=== PATIENT | male | born 1950 | race Caucasian/White ===

== ENCOUNTER → 2017-07-10 | Outpatient (CLI) | payer OTHER | LOC: FIMAGING 09:34 | PROVIDERS: ATTEND Internal Medicine | DX: R91.8 Other nonspecific abnormal finding of lung field (principal) ==

== ENCOUNTER 2017-08-15 10:00 | Day surgery (SDC) | payer OTHER ==
[2017-08-15] MEDS ORDERED: PROTAMINE SULFATE 50 MG/5 ML VIAL IVP PRN (10:14)
[2017-08-15] MEDS ORDERED: MEPERIDINE 25 MG/ML SYR IVP PRN (10:14)
[2017-08-15] MEDS ORDERED: FLUMAZENIL 0.5 MG/5 ML MDV IVP PRN (10:14)
[2017-08-15] MEDS ORDERED: HEPARIN 10,000 UNIT/10 ML MDV (1,000 UNIT/ML) IVP PRN (10:14)
[2017-08-15] MEDS ORDERED: MIDAZOLAM 2 MG/2 ML VIAL IVP PRN (10:14)
[2017-08-15] MEDS ORDERED: fentaNYL 100 MCG/2 ML INJ IVP PRN (10:14)
[2017-08-15] MEDS ORDERED: ALTEPLASE 2 MG VIAL IVP PRN (10:14)
[2017-08-15] MEDS ORDERED: NALOXONE HCL 0.4 MG/ML INJ IVP PRN (10:14)
[2017-08-15] MEDS ORDERED: GLUCAGON HCL 1 MG VIAL IVP PRN (10:14)
[2017-08-15] MEDS ORDERED: NS 1,000 ML IV SCH (10:15)
[2017-08-15] MEDS ORDERED: NALOXONE HCL 0.4 MG/ML INJ ONE (10:18)
[2017-08-15] MEDS ORDERED: fentaNYL 100 MCG/2 ML INJ ONE (10:19)
[2017-08-15] MEDS ORDERED: MIDAZOLAM 2 MG/2 ML VIAL ONE (10:19)
[2017-08-15] MEDS ORDERED: FLUMAZENIL 0.5 MG/5 ML MDV IVP ONE (10:19)
[2017-08-15 11:08] LABS: INR 1.05 (0.83-1.16); PROTIME(PATIENT) 13.9 SEC (12.0-15.0)
[2017-08-15] MEDS ORDERED: LIDO/EPI 1% **Not for Epidural 20 ML MDV ONE (11:30)
[2017-08-15] MEDS ORDERED: LIDOCAINE 1% 300 MG/30 ML SDV ONE (11:31)
--- NOTE | 2017-08-15 11:41 | PDGENHP ---
History & Physical Chief Complaint: lung nodule History of Present Illness: tobacco history, new solid LLL nodule on CT Relevant Physical Exam: NAD, no wheezing Cardiorespiratory Assessment: rrr, nl wob
--- NOTE | 2017-08-15 11:42 | PDPROPOC ---
Sedation Plan of Care Sedation Plan of Care: vital signs stable, mental status noted, patient educated of risks, benefits, alternatives, patient can tolerate sedation ASA Classification: ASA 2 Planned drugs: fentanyl, midazolam Mallampati Score: Class 3 Mallampati Reference Image:
--- NOTE | 2017-08-15 12:41 | PDRADPN ---
Radiology Procedure Note Date of Procedure: 08/15/17 Radiologist: Judah Jeff Anesthesia: IV Sedation, Local (Specify) Pre-op Diagnosis: primary lung cancer Post-op Diagnosis: same Indication: 2.5cm solid LLL nodule Procedure: CT guided biopsy Finding(s): Four passes with 18G core biopsy devices from inferior edge of nodule submitted in formalin. Touch prep view by path MD, adequate and likely malignant by report. Inf/Abcess present in the surg proc area at time of surgery?: No EBL: Minimal Complications: none Specimen(s): Four 18G cores submitted in formalin
[2017-08-15] MEDS ORDERED: oxyCODONE IR 5 MG TAB PO PRN (13:06)
[2017-08-15 15:33] VITALS: BP 113/72
== END 2017-08-15 15:45 | disposition home or self-care (01) ==
LOC: FIMAGING 10:00
PROVIDERS: ATTEND Radiology Diagnostic Radiology
PROC: 0BBJ3ZX Excision of Left Lower Lung Lobe, Percutaneous Approach, Diagnostic (ICD-10-PCS; principal; 2017-08-15 12:54)
PROC: BB281ZZ Computerized Tomography (CT Scan) of Left Tracheobronchial Tree using Low Osmolar Contrast (ICD-10-PCS; principal; 2017-08-15 12:54)
DX: R91.1 Solitary pulmonary nodule (principal); Z87.891 Personal history of nicotine dependence
CPT/HCPCS: J2250; J2310; J3010

== ENCOUNTER → 2017-09-04 | Outpatient (CLI) | payer OTHER ==
[~2017-09-04] MED LIST: GADOBUTROL 10 ML VIAL IVP ONE
== END ==
LOC: FIMAGING 13:38
PROVIDERS: ATTEND Internal Medicine Hematology & Oncology
DX: C34.32 Malignant neoplasm of lower lobe, left bronchus or lung (principal); R90.82 White matter disease, unspecified
CPT/HCPCS: A9585

== ENCOUNTER 2017-09-12 10:45 | Inpatient (IN) | payer OTHER ==
[2017-09-12] MEDS ORDERED: ONDANSETRON 4 MG/2 ML VIAL IVP ONE (11:11)
[2017-09-12] MEDS ORDERED: ceFAZolin 2 GM/DEXTROSE 100 ML IV ONE (11:11)
[2017-09-12] MEDS ORDERED: DEXAMETHASONE 4 MG/ML VIAL IVP ONE (11:11)
--- NOTE | 2017-09-12 11:11 | PDANEPAE ---
ANE History of Present Illness LLL Small Cell Lung Ca ANE Past Medical History - Cardiovascular History Hx Hypertension: No Hx Arrhythmias: No Hx Chest Pain: No Hx Coronary Artery / Peripheral Vascular Disease: No Hx CHF / Valvular Disease: No Hx Palpitations: No Cardiovascular History Comment: A FIB CHILD, NO ISSUES IN PAST, JUST HEARD FROM HIS MOM - Pulmonary History Hx COPD: No Hx Asthma/Reactive Airway Disease: No Hx Recent Upper Respiratory Infection: No Hx Oxygen in Use at Home: No Hx Sleep Apnea: No Sleep Apnea Screening Result - Last Documented: Negative Pulmonary History Comment: SURGEON INSTRUCTED PT NOT TO SMOKE FOR 3 DAYS PRIOR TO LUNG SURGERY. HX OF NODULE - Neurologic History Hx Cerebrovascular Accident: No Hx Seizures: No Hx Dementia: No Neurologic History Comment: MATIAS OCC, SINUS RELATED - Endocrine History Hx Diabetes: No Hypothyroid: No Hyperthyroid: No - Renal History Hx Renal Disorders: No - Liver History Hx Hepatic Disorders: No - Neurological & Psychiatric Hx Hx Neurological and Psychiatric Disorders: No - Cancer History Hx Cancer: No - Congenital Disorder History Hx Congenital Disorders: No - GI History Hx Gastrointestinal Disorders: No - Other Health History Other Health History: RASH ON BACK - Chronic Pain History Chronic Pain: No - Surgical History Prior Surgeries: SEPTOPLASTY. SAM ING HERNIA. REMVL NASAL PAPILLOMA. COLONOSCOPY ANE Review of Systems Review of systems is: negative Review of Systems: - Exercise capacity Exercise capacity: >=4 METS METS (RN): 4 METS ANE Patient History - Allergies Allergies/Adverse Reactions: CATS Allergy (Mild, Uncoded 08/15/17 10:34) SNEEZE, ITCHY EYES wheat grass Allergy (Uncoded 08/15/17 10:34) - Home Medications Home Medications: Triamcinolone Acetonide [Nasacort] 1 spray NS HS 08/11/17 [Last Taken 08/14/17 20:00] - NPO status NPO Status: no food or drink >8 hours - Anes Hx Anes Hx: no prior problems - Smoking Hx Smoking Status: Heavy smoker Marijuana use: No - Alcohol Use Alcohol Use: None - Family Anes Hx Family Anes Hx: none Family Hx Anesthesia Complications: NONE ANE Labs/Vital Signs - Vital Signs Vital Signs: reviewed preoperatively; see RN documention for details Height: 180.34 cm Weight: 71.668 kg ANE Physical Exam - Airway Neck exam: FROM Mallampati Score: Class 1 Mouth exam: normal dental/mouth exam - Pulmonary Pulmonary: no respiratory distress - Cardiovascular Cardiovascular: regular rate and rhythym - ASA Status ASA Status: III ANE Anesthesia Plan Anesthesia Plan: general endotracheal anesthesia Lines/Monitors: arterial line
[2017-09-12] MEDS ORDERED: LR 1,000 ML IV ONE (11:12)
[2017-09-12] MEDS ORDERED: MIDAZOLAM 2 MG/2 ML VIAL IVP ONE (11:12)
[2017-09-12] MEDS ORDERED: LIDOCAINE 1% 2 ML INJ ID PRN (11:12)
--- NOTE | 2017-09-12 11:16 | PDHPUP ---
History & Physical Update H&P update statement: This history and physical update is based on an assessment of the patient which was completed after admission or registration (within 24 hours), but prior to the surgery/procedure. H&P update: H&P reviewed & patient examined, no change in patient's condition since H&P completed
[2017-09-12] MEDS ORDERED: LR 1,000 ML IV SCH (11:30)
[2017-09-12] MEDS ORDERED: BUPIVACAINE 0.25% 30 ML SDV ONE ×3 (11:33→16:42)
[2017-09-12] MEDS ORDERED: POLYMYXIN B SULFATE 500,000 UNIT/10 ML SYR IRR ONE (11:34)
[2017-09-12] MEDS ORDERED: EPINEPHrine 1 MG/ML INJ ONE (11:34)
[2017-09-12] MEDS ORDERED: BACITRACIN 50,000 UNITS/10 ML SYR IRR ONE (11:34)
[2017-09-12] MEDS ORDERED: fentaNYL 100 MCG/2 ML INJ ONE (11:49)
[2017-09-12] MEDS ORDERED: ROCURONIUM 100 MG/10 ML VIAL ONE (11:49)
[2017-09-12] MEDS ORDERED: LIDOCAINE 2% 5 ML SDV ONE (11:49)
[2017-09-12] MEDS ORDERED: PROPOFOL 200 MG/20 ML VIAL ONE (11:50)
[2017-09-12] MEDS ORDERED: DEXAMETHASONE 4 MG/ML VIAL ONE (12:33)
[2017-09-12] MEDS ORDERED: ONDANSETRON 4 MG/2 ML VIAL ONE (12:33)
[2017-09-12] MEDS ORDERED: HYDROmorphONE/DILAUDID 2 MG/ML INJ ONE ×2 (13:06→16:33)
[2017-09-12] MEDS ORDERED: ROCURONIUM 50 MG/5 ML VIAL ONE (13:27)
[2017-09-12] MEDS ORDERED: ceFAZolin 1 GM VIAL ONE ×2 (15:42)
[2017-09-12] MEDS ORDERED: ePHEDrine SULFATE 25 MG/5 ML SYR ONE (15:53)
[2017-09-12] MEDS ORDERED: KETOROLAC 30 MG/1 ML SDV ONE (16:40)
[2017-09-12] MEDS ORDERED: SUGAMMADEX SODIUM 200 MG/2 ML VIAL IVP ONE (16:40)
[2017-09-12] MEDS ORDERED: NALOXONE HCL 0.4 MG/ML INJ IVP PRN (17:27)
[2017-09-12] MEDS ORDERED: ONDANSETRON 4 MG/2 ML VIAL IVP PRN (17:27)
[2017-09-12] MEDS ORDERED: PROMETHAZINE HCL 25 MG/ML INJ IVP PRN (17:27)
[2017-09-12] MEDS ORDERED: ALBUTEROL 3 ML DEYVIAL IH PRN (17:27)
[2017-09-12] MEDS ORDERED: oxyCODONE IR 5 MG TAB PO PRN (17:27)
[2017-09-12] MEDS ORDERED: fentaNYL 100 MCG/2 ML INJ IVP PRN (17:27)
[2017-09-12] MEDS ORDERED: HYDROmorphONE/DILAUDID 1 MG/ML INJ IVP PRN (17:27)
[2017-09-12] MEDS ORDERED: ACETAMINOPHEN 500 MG TAB PO PRN (17:27)
--- NOTE | 2017-09-12 17:27 | POSTANESTH ---
Post Anesthetic Evaluation Cardiovascular Status: Normal, Stable Respiratory Status: Normal, Stable Level of Consciousness/Mental Status: Can Participate in Eval Pain Control: Adequate, Prn Tx Ordered Nausea/Vomiting Control: Adequate, Prn Tx Ordered Complications Possibly Related to Anesthesia: None Noted
[2017-09-12] MEDS ORDERED: BUPIVACAINE 0.5% 30 ML SDV MISC SCH (17:30)
--- NOTE | 2017-09-12 17:37 | POSTOPPROG ---
Post Op Note Date of Operation: 09/12/17 Surgeon: Virgil Wright (, FACS) Finance Insurance Manager: Niki Aguirre PA-C Anesthesiologist: Richar Godinez MD Anesthesia: GET(General Endotracheal) Pre-op Diagnosis: LLL lung cancer Post-op Diagnosis: same Procedure: mediastinoscopy/VATS left lower lobectomy Findings: 3 cm tumor LLL lateral basilar segment Inf/Abcess present in the surg proc area at time of surgery?: No EBL: 50-100 (100ml) Drains: Other (#[address])
[2017-09-12] MEDS ORDERED: BUPIVACAINE 0.25% 270 ML in PUMP SET 1 EA NB SCH (18:00)
[2017-09-12] MEDS: HYDROmorphONE/DILAUDID 1 MG/ML INJ IVP PRN ×3 (18:21→22:18)
[2017-09-12] MEDS: ONDANSETRON 4 MG/2 ML VIAL IVP PRN ×2 (19:40→23:59)
--- NOTE | 2017-09-12 21:18 | GOP ---
[f rep st] OPERATIVE REPORT DATE OF OPERATION: 09/12/2017 SURGEON: Virgil Wright MD, FACS P D DRIVER SURGEON: Niki Aguirre PA-C ANESTHESIA: General endotracheal. ANESTHESIOLOGIST: Richar Godinez MD. PREOPERATIVE DIAGNOSIS: Left lower lobe lung carcinoma. POSTOPERATIVE DIAGNOSIS: Left lower lobe lung carcinoma. PROCEDURE PERFORMED: 1. Mediastinoscopy. 2. VATS left lower lobectomy. FINDINGS: Unremarkable appearing peritracheal nodes submitted from the right lower, right upper, anterior distal tracheal and left lower peritracheal positions. Tumor in the left lower lobe without violation of the parietal pleura. No pleural effusion or studding of the pleura. Additional nodes submitted from the inferior pulmonary ligament and posterior hilar/esophageal stations in addition to interbronchial lymph nodes. Tumor 8 cm from the nearest bronchial margin. ESTIMATED BLOOD LOSS: 100 mils. DESCRIPTION OF PROCEDURE: After informed consent was obtained, the patient was brought to the operating room and placed under general anesthesia by Dr. Godinez. The neck and chest were prepped and draped in usual fashion. Before proceeding, a time-out and identification of the patient was performed. A transverse incision was made above the sternal notch, and dissection was carried out down through the skin and subcutaneous tissues. The strap muscles were mobilized in the midline and retracted laterally. A plane of dissection was entered anterior to the trachea and blunt dissection used to free up the loose areolar tissue over the mediastinum down to below the innominate artery. Initially, a rigid mediastinoscope was introduced. However, the light source was inadequate, and I switched to a video mediastinoscope, which gave better visualization and did not compromise exposure. Dissection of the peritracheal tissues revealed normal-appearing, minimally anthracotic lymph nodes and samples were taken from the right upper, right lower, anterior tracheal and left lower peritracheal positions. A small cervical node was excised upon the approach. Hemostasis appeared secure upon completion, and was secured with cautery primarily. The mediastinoscope was withdrawn. The neck incision was closed in 2 layers of 2-0 Vicryl suture followed by a 4-0 Monocryl suture in a subcuticular fashion for the skin. The patient was then positioned in the right lateral decubitus position with the left chest up, padding all pressure points. The chest was sterilely prepped and draped in the usual fashion. Before proceeding, a repeat time-out was performed for the 2nd phase of the operation. The chest was entered through the 4th intercostal space, making an 8 cm access incision, incising the anterior border of the latissimus muscle, splitting the serratus fibers and dividing the intercostal muscles between the 4th and 5th ribs. A small Saturnino wound protector was deployed. This allowed introduction of a 30-degree scope. Additional 7 mm ports were placed in the 3rd intercostal space in the anterior axillary line, 9th intercostal space posterior axillary line, and in the posterior chest 7th intercostal space approximately along the edge of the medial edge of the scapula. This allowed introduction of atraumatic forceps and visualization of the chest was good. The lung was deflated. The major fissure was incised with cautery and the Harmonic Scalpel. Hemostasis was secured with cautery and hemoclips. After the major fissured had been dissected down to the pulmonary artery and the superior segment from the adjacent lingula, the lung was flipped anteriorly and the mediastinal pleura and was incised starting at the inferior pulmonary ligament cephalad. Inferior pulmonary ligament lymph nodes were submitted as a separate station. As the lung was mobilized, the bronchus came into view as did the inferior pulmonary vein. Dissection was carried out to above the hilum and a posterior hilar/esophageal node was harvested for inspection. The inferior pulmonary vein was then dissected circumferentially and dispatched with a single firing of the Endo JAMES stapler using a white cartridge. Further dissection anteriorly was slowly and carefully performed, freeing up the bronchus circumferentially. The pulmonary artery was dissected anterior to the bronchus and the 1st of 3 branches was dispatched with a single firing of the JAMES stapler, allowing mobilization of the 2nd branch. This was encircled with a vessel loop for traction and was also divided with firing of the JAMES stapler using the vascular load. The 3rd branch could not easily be divided without significant traction and I elected to divide the bronchus. This was performed after circumferential dissection using an Endo-JAMES stapler using a blue cartridge. Once the bronchus had been divided, the remaining pulmonary artery was easily dispatched with the vascular cartridge, and the lung was detached from the hilum. Blood loss to this point had been approximately 100 mL. The lung was retrieved through the access port without disruption of the parenchyma and was submitted for gross as well as permanent section. Hemostasis appeared secure within the operative field. The chest was irrigated with 1 liter of warm saline solution and minimal air leak noted from the parenchyma of the lingula. No bronchial stump leaks were noted. There was no active bleeding at the completion of the procedure. The lung was re-expanded. The 9th intercostal space port site was used to place a 32-Setswana straight chest tube along the posterior gutter of the chest. This was secured to the skin with 0 silk suture. The access incision was then closed with interrupted 0 Vicryl suture for the serratus muscle, interrupted 2-0 Vicryl suture for the latissimus muscle and subcutaneous tissue. Skin was closed with 4-0 Monocryl suture in a subcuticular fashion. Similar closure was performed for the remaining 2 port sites. An ON-Q catheter was tunneled to lay the tip of the catheter in the intercostal space between the 4th and 5th ribs, and this was secured to the skin with Dermabond. Sterile dressings were applied. Dermabond was applied to the remaining incisions. Patient was returned supine, extubated , and returned to the recovery room in satisfactory condition. Needle, sponge, and instrument counts were correct. PROCEDURE PERFORMED: 1. Mediastinoscopy. 2. VATS left lower lobectomy. COMPLICATIONS: None. OPERATIVE TIME: 4 hours mediastinoscopy and VATS left lower lobectomy. /[id number]/MODL MTDD
[2017-09-12] MEDS ORDERED: ceFAZolin 2 GM in NS 50 ML IV SCH (22:00)
[2017-09-12] MEDS ORDERED: LIDOCAINE 2% JELLY 20 ML (UROJECT) UR PRN (23:00)
[2017-09-12] MEDS ORDERED: NICOTINE POLACRILEX 2 MG BC PRN (23:15)
[2017-09-12] MEDS ORDERED: MINI BC PRN (23:15)
[2017-09-12] MEDS: KETOROLAC 15 MG/1 ML SDV IVP SCH (23:45)
[2017-09-12] MEDS: ACETAMINOPHEN 500 MG TAB PO SCH (23:45)
[2017-09-13] MEDS: ceFAZolin 2 GM/DEXTROSE 100 ML IV SCH ×2 (00:05→08:36)
[2017-09-13] MEDS ORDERED: LORazepam 2 MG/ML INJ IVP PRN (01:50)
[2017-09-13] MEDS ORDERED: PROMETHAZINE HCL 25 MG/ML INJ IVP PRN (01:50)
[2017-09-13] MEDS: KETOROLAC 15 MG/1 ML SDV IVP SCH ×3 (06:30→18:16)
[2017-09-13] MEDS: ACETAMINOPHEN 500 MG TAB PO SCH ×2 (06:30→14:32)
[2017-09-13] MEDS ORDERED: NICOTINE POLACRILEX 2 MG GUM B PRN (08:25)
--- NOTE | 2017-09-13 08:31 | SOAPPROG ---
SOAP Progress Note Assessment/Plan: Assessment: s/p LLlobectomy/VATS for T2N0 LLL carcinoma (NSC) doing well POD #1 no supplemental O2 required Plan: to med surg/CT to H2O seal check CXR LMWH 09/13/17 08:28 Subjective: moderate upper right back/shoulder pain Objective: Vital Signs Temp Pulse Resp BP Pulse Ox 36.6 C 78 16 98/51 L 99 09/13/17 06:25 09/13/17 08:04 09/13/17 08:04 09/13/17 08:04 09/13/17 08:04 Laboratory Results 09/13/17 03:40 09/12/17 09/13/17 09/14/17 05:59 05:59 05:59 Intake Total 2600 Output Total 900 Balance 1700 - Pending Discharge Pending Discharge Within 24 Hours: No Pending Discharge Within 48 Hours: No Physical Exam - Physical Exam General Appearance: mild distress Respiratory: lungs clear, decreased breath sounds (diminished left base) Cardiac/Chest: regular rate, rhythm Back: Normal inspection Skin: warm/dry Extremities: other (mild swelling left hand from IV site) Neuro/Psych: alert, normal mood/affect, oriented x 3 ICD10 Worksheet Patient Problems: Problems Problem Status Onset Non-small cell carcinoma of lung, stage 2 Acute - ICD10 Problem Qualifiers (1) Non-small cell carcinoma of lung, stage 2 Qualifiers: Laterality: left Qualified Code(s): C34.92 - Malignant neoplasm of unspecified part of left bronchus or lung
[2017-09-13] MEDS: METHOCARBAMOL 750 MG TAB PO SCH ×2 (08:35→16:46)
[2017-09-13] MEDS: SENNOSIDES 1 TAB PO SCH ×2 (08:35→20:25)
[2017-09-13] MEDS: ENOXAPARIN 40 MG/0.4 ML SYR SC SCH (08:36)
[2017-09-13] MEDS: oxyCODONE IR 5 MG TAB PO PRN ×3 (09:05→18:19)
--- NOTE | 2017-09-13 09:11 | PDMN ---
Medical Necessity Medical necessity: MCG: S802 Lobectomy, Lung, by Video-Assisted Thoracic Surgery (VATS), 2 days. Medicare inpatient only. 66 y/o w/ LLL small cell lung CA, s/p mediastinoscopy and LLL lobectomy w/ VATS.
--- NOTE | 2017-09-13 11:16 | ASMTCMCOM ---
CM Note CM Note Notes: Patient is POD #1 LLL lobectomy/VATS for T2N0 LLL carcinoma. He is recovering well in the ICU. Patient lives with his and is normally independent. I don't anticipate any discharge needs, but Case Management is available if they arise. Date Signed: 09/13/2017 11:16 AM Electronically Signed By:Hafsa Voss RN
[2017-09-13] MEDS: LORazepam 1 MG TAB PO PRN ×2 (12:53→18:18)
[2017-09-13] MEDS: Triamcinolone Acetonide [Nasacort] 1 SPRAY NS SCH ×2 (20:26→20:28)
[2017-09-14] MEDS: ACETAMINOPHEN 500 MG TAB PO SCH ×2 (00:40→04:26)
[2017-09-14] MEDS: METHOCARBAMOL 750 MG TAB PO SCH ×4 (00:40→21:30)
[2017-09-14] MEDS: KETOROLAC 15 MG/1 ML SDV IVP SCH ×4 (01:40→18:30)
[2017-09-14] MEDS ORDERED: POLYETHYLENE GLYCOL 3350 17 GM PKT PO PRN (06:36)
[2017-09-14] MEDS ORDERED: BISACODYL 10 MG SUPP PR PRN (06:36)
[2017-09-14] MEDS ORDERED: MAGNESIUM HYDROXIDE 30 ML UDCUP PO PRN (06:36)
[2017-09-14] MEDS ORDERED: LACTULOSE 20 GM/30 ML UDCUP PO PRN (06:36)
[2017-09-14] MEDS ORDERED: HYDROCODONE/APAP 5/325 TAB PO PRN (06:39)
[2017-09-14] MEDS ORDERED: ONDANSETRON 4 MG/2 ML VIAL IVP PRN (06:40)
--- NOTE | 2017-09-14 06:44 | SOAPPROG ---
SOAP Progress Note Assessment/Plan: Assessment: s/p LLlobectomy/VATS for T2N0 LLL carcinoma (NSC) doing well POD #2 no supplemental O2 required Plan: DC CT when output < 100ml/24 hr check CXR LMWH 09/13/17 08:28 09/14/17 06:43 Subjective: incisional pain/nausea with Oxy Objective: CT output 200ml/24 hrs Vital Signs Temp Pulse Resp BP Pulse Ox 36.9 C 71 16 125/52 H 94 09/14/17 04:00 09/14/17 04:00 09/14/17 04:00 09/14/17 04:00 09/14/17 04:00 Laboratory Results 09/13/17 03:40 09/13/17 09/14/17 09/15/17 05:59 05:59 05:59 Intake Total 2600 1188 Output Total 900 665 Balance 1700 523 - Pending Discharge Pending Discharge Within 24 Hours: No Pending Discharge Within 48 Hours: Yes Pending Discharge Date: 09/16/17 Pending Discharge Time: 11:00 Physical Exam - Physical Exam General Appearance: mild distress Respiratory: lungs clear, normal breath sounds, decreased breath sounds, other ( CT without air leak/serosanguinous drainage) Cardiac/Chest: regular rate, rhythm ICD10 Worksheet Patient Problems: Problems Problem Status Onset Non-small cell carcinoma of lung, stage 2 Acute - ICD10 Problem Qualifiers (1) Non-small cell carcinoma of lung, stage 2 Qualifiers: Laterality: left Qualified Code(s): C34.92 - Malignant neoplasm of unspecified part of left bronchus or lung
[2017-09-14] MEDS: ENOXAPARIN 40 MG/0.4 ML SYR SC SCH (09:58)
[2017-09-14] MEDS: SENNOSIDES 1 TAB PO SCH ×2 (09:58→21:32)
[2017-09-14] MEDS: LORazepam 1 MG TAB PO PRN ×3 (10:12→21:30)
[2017-09-14] MEDS: oxyCODONE IR 5 MG TAB PO PRN ×3 (12:41→21:30)
[2017-09-14] MEDS: Triamcinolone Acetonide [Nasacort] 1 SPRAY NS SCH (21:34)
[2017-09-15] MEDS: KETOROLAC 15 MG/1 ML SDV IVP SCH ×2 (00:05→05:51)
[2017-09-15] MEDS: oxyCODONE IR 5 MG TAB PO PRN ×4 (01:50→17:22)
[2017-09-15] MEDS: LORazepam 1 MG TAB PO PRN ×2 (06:00→12:23)
[2017-09-15] MEDS ORDERED: BISACODYL 10 MG SUPP PR ONE (08:25)
--- NOTE | 2017-09-15 08:54 | PDDCSUM ---
Discharge Summary Discharge Summary: #[id number] discharge summary dictated S MD Adriana, FACS
[2017-09-15] MEDS ORDERED: PANTOPRAZOLE SODIUM 40 MG TAB PO SCH (09:00)
--- NOTE | 2017-09-15 09:12 | GDS ---
[f rep st] DISCHARGE SUMMARY DISCHARGE DIAGNOSIS: Left lower lobe lung carcinoma. PROCEDURE PERFORMED: 09/12/2017, VATS left lower lobectomy and mediastinoscopy. HOSPITAL COURSE: For details of admission history and physical, please see dictated summary. Briefly, the patient is a 66-year-old male with a left lower lobe lung carcinoma. Preoperative clinical staging T2 N0 by PET-CT, admitted for left lower lobectomy. Mediastinoscopy was performed with sampling of the right peritracheal and left lower paratracheal nodes. These appeared clinically unremarkable. Left lower lobectomy was accomplished via VATS with minimal blood loss. Postoperatively, the patient was admitted overnight to the SDU. The following day, he was on room air, did not require supplemental oxygen , and his chest tube was placed to water seal. He was transferred to med/surg. Chest tube drainage was high enough that I did not want to remove the tube on postop day 2, however, by postop day 3, the output had dropped and I removed his chest tube. Postprocedural chest x-ray showed no pneumothorax or pleural effusion. The patient was discharged home without oxygen, ambulatory, afebrile , moderate incisional pain was controlled with his regimen of medications, which include ibuprofen 600 mg p.o. four times daily, Tylenol 1000 mg p.o. q.8 hours, lorazepam 1 mg p.o. q.6 hours p.r.n., Robaxin 750 mg p.o. three times daily, oxycodone 5 mg 1-2 p.o. q.4 hours p.r.n., pantoprazole 40 mg p.o. twice daily, Senokot-S 2 tabs p.o. twice daily. Patient will continue Nicorette gum and Nasacort which were his only preoperative medications. The patient has follow up arranged with myself, with Dr. Andino. Final pathology is pending and I will contact the patient when I see the results. /[id number]/MODL MTDD
--- NOTE | 2017-09-15 09:33 | ASMTLACE ---
LACE Length of stay for Answers: 2 days current admission Acuity / Level of Answers: Yes Care: Did the patient have an inpatient admission? Comorbidities - select Answers: Any tumor (including all that apply lymphoma or leukemia) # of Emergency department Answers: 0 visits in the last 6 months Score: 7 Date Signed: 09/15/2017 09:33 AM Electronically Signed By:Jennifer Osorio
--- NOTE | 2017-09-15 09:36 | ASDISCHSUM ---
Discharge Information Plan Status:Home with No Needs Medically Cleared to Leave: Discharge Date: CM D/C Disposition:Home, Routine, Self-Care ADT D/C Disposition:Home, Routine, Self-Care Projected Discharge Date: Transportation at D/C:Family Discharge Delay Reason: Follow-Up Date: Discharge Slot: Final Diagnosis: Placement Information Patient Contact Information Contact Name:VERA Relationship: Address:[address] City:[place] Alternate Phone: [facility]/Zip Code:[place] [address] Email: Financial Information Financial Class:[employer] [facility] Primary Plan Number:[id number] Secondary Plan Desc: Secondary Plan Number: Assessment Information [facility] CM Progress Note CM Note CM Note Notes: Patient is POD #1 LLL lobectomy/VATS for T2N0 LLL carcinoma. He is recovering well in the ICU. Patient lives with his and is normally independent. I don't anticipate any discharge needs, but Case Management is available if they arise. Date Signed: 09/13/2017 11:16 AM Electronically Signed By:Hafsa Voss RN LACE LACE Length of stay for Answers: 2 days current admission Acuity / Level of Answers: Yes Care: Did the patient have an inpatient admission? Comorbidities - select Answers: Any tumor (including all that apply lymphoma or leukemia) # of Emergency department Answers: 0 visits in the last 6 months Score: 7 Date Signed: 09/15/2017 09:33 AM Electronically Signed By:Jennifer Osorio Case Management Discharge Plan Note Case Management Discharge Discharge Order Complete? Answers: Yes Patient to Obtain Answers: Independently Medications Transportation Arranged Answers: Family/Friends Family Notified Answers: Yes Discharge Comments Notes: Pt to be D/C'ed home independently as no CM needs were identified. Date Signed: 09/15/2017 09:34 AM Electronically Signed By:Jennifer Osorio Intervention Information
[2017-09-15] MEDS: SENNOSIDES 1 TAB PO SCH (10:21)
[2017-09-15] MEDS: ENOXAPARIN 40 MG/0.4 ML SYR SC SCH (10:21)
[2017-09-15] MEDS: METHOCARBAMOL 750 MG TAB PO SCH (10:23)
[2017-09-15] MEDS: IBUPROFEN 600 MG TAB PO SCH ×2 (12:23→16:57)
[2017-09-15 15:13] VITALS: BP 127/75
== END 2017-09-15 17:30 | disposition home or self-care (01) | DRG 165 ==
LOC: F3E 10:45 → OBSVTOIN 17:32 → F2N 18:06 → UNDODISIN 09-13 11:53 → F1N 09-13 13:11
PROVIDERS: ADMIT Surgery; ATTEND Surgery
PROC: 0BTJ4ZZ Resection of Left Lower Lung Lobe, Percutaneous Endoscopic Approach (ICD-10-PCS; principal; 2017-09-12 11:30)
PROC: 07B74ZX Excision of Thorax Lymphatic, Percutaneous Endoscopic Approach, Diagnostic (ICD-10-PCS; principal; 2017-09-12 11:30)
PROC: 07B Lymphatic and Hemic Systems, Excision (ICD-10-PCS; principal; 2017-09-12 11:30)
DX: C34.32 Malignant neoplasm of lower lobe, left bronchus or lung (principal); F17.210 Nicotine dependence, cigarettes, uncomplicated
CPT/HCPCS: J0171; J0690; J1100; J1170; J1650; J1885; J2060; J2250; J2405; J2704; J3010

== ENCOUNTER → 2017-11-28 | Outpatient (CLI) | payer OTHER, MEDICARE ==
[~2017-11-28] MED LIST changes: -GADOBUTROL 10 ML VIAL IVP ONE; +IOPAMIDOL (ISOVUE-300) 100 ML BTL ONE
== END ==
LOC: FIMAGING 08:37
PROVIDERS: ATTEND Surgery
DX: Z08 Encounter for follow-up examination after completed treatment for malignant neoplasm (principal); R07.9 Chest pain, unspecified; D35.00 Benign neoplasm of unspecified adrenal gland; Z90.2 Acquired absence of lung [part of]
CPT/HCPCS: 71260; Q9967; 82565-PO

== ENCOUNTER → 2018-01-09 | Outpatient (CLI) | payer OTHER, MEDICARE | LOC: FIMAGING 09:06 | PROVIDERS: ATTEND Specialist | DX: C61 Malignant neoplasm of prostate (principal); R97.20 Elevated prostate specific antigen [PSA] | CPT/HCPCS: 78306; A9503 ==

== ENCOUNTER → 2018-01-19 | Outpatient (CLI) | payer OTHER, MEDICARE ==
[~2018-01-19] MED LIST changes: +GADOBUTROL 10 ML VIAL IVP ONE; -IOPAMIDOL (ISOVUE-300) 100 ML BTL ONE
== END ==
LOC: FIMAGING 08:00
PROVIDERS: ATTEND Specialist
DX: C61 Malignant neoplasm of prostate (principal)
CPT/HCPCS: 72197; 76377; A9585

== ENCOUNTER → 2018-02-13 | Outpatient (CLI) | payer OTHER, MEDICARE | LOC: FIMAGING 09:13 | PROVIDERS: ATTEND Surgery | DX: M79.89 Other specified soft tissue disorders (principal) ==

== ENCOUNTER 2018-04-02 05:41 | Inpatient (IN) | payer OTHER, MEDICARE ==
--- NOTE | 2018-04-01 18:25 | GHP ---
DATE OF ADMISSION: 04/02/2018 ADMISSION DIAGNOSIS: Adenocarcinoma of the prostate. HISTORY: This is a 67-year-old gentleman who has had adenocarcinoma of the prostate and he is admitt ed for the robotic assisted radical prostatectomy and bilateral pelvic lymphadenectomy. At the prese nt time, his history is he has had lung cancer treated and is doing well from that. 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 He has normal sexual function preoperative ly. His prostate biopsy noted a York 8 prostate cancer, having a preop MRI BI-RADS 5 and his PSA was noted to be 3.1. Prostate volume 35 g. The PSA density was 0.11. At the present time, he is admitted for the above. Indications, complications, options have been dis cussed. Written and verbal consent were obtained. He is admitted for the above procedure. MEDICAL HISTORY: Lung cancer and thyroid issue. PAST SURGICAL HISTORY: Previous surgeries, hernia, lung nodule, nasal surgery, and then transrectal ultrasound biopsy of the prostate. MEDICATION: On admission have been Lyrica and Advil. ALLERGIES: None. FAMILY HISTORY: Positive for diabetes and stomach cancer. SOCIAL HISTORY: Former smoker. Nondrinker. REVIEW OF SYSTEMS: Negative Cardiac, GI, and Endocrine. PHYSICAL EXAMINATION: VITAL SIGNS: Stable. CHEST: Clear. HEART: Regular rate and rhythm. ABDOM EN: Normal. No organomegaly rebound, or guarding. RECTAL: Digital rectal exam is normal. LABORATORY DATA: Pathology: Biopsy from 12/31/2017, revealed the left side of the prostate having G leason score 8 cancer, and then on the right side, he had prostatic intraepithelial neoplasia. His p rostate measurements previously had shown that it appeared that his capsule was intact and the space between the rectum and the prostate was well delineated. Bladder neck did not appear to be obstructe d with an intravesical lobe and the prostate volume on the original ultrasound was 27.9 g and a PSA d ensity of 0.11. At the present time, he is admitted for robotic assisted radical prostatectomy and bilateral pelvic l ymphadenectomy. Indications, complications, options have been discussed, he appears to be well info rmed and is admitted for the above procedure. /[id number]/MODL
[2018-04-02] MEDS ORDERED: ceFAZolin 2 GM/DEXTROSE 100 ML IV ONE (06:08)
[2018-04-02] MEDS ORDERED: LR 1,000 ML IV ONE (06:21)
[2018-04-02] MEDS ORDERED: LIDOCAINE 1% 2 ML INJ ID PRN (06:37)
[2018-04-02] MEDS ORDERED: MIDAZOLAM 2 MG/2 ML VIAL IVP ONE (06:53)
[2018-04-02] MEDS ORDERED: PROPOFOL 200 MG/20 ML VIAL ONE (07:10)
[2018-04-02] MEDS ORDERED: fentaNYL 100 MCG/2 ML INJ ONE ×2 (07:10→11:05)
[2018-04-02] MEDS ORDERED: BUPIVACAINE 0.5% 30 ML SDV ONE (07:11)
--- NOTE | 2018-04-02 07:20 | PDANEPAE ---
ANE Past Medical History - Cardiovascular History Hx Hypertension: No Hx Arrhythmias: No Hx Chest Pain: No Hx Coronary Artery / Peripheral Vascular Disease: No Hx CHF / Valvular Disease: No Hx Palpitations: No Cardiovascular History Comment: NO CP. A FIB CHILD, NO ISSUES IN PAST, JUST HEARD FROM HIS MOM - Pulmonary History Hx COPD: No Hx Asthma/Reactive Airway Disease: No Hx Recent Upper Respiratory Infection: No Hx Oxygen in Use at Home: No Hx Sleep Apnea: No Sleep Apnea Screening Result - Last Documented: Negative Pulmonary History Comment: LLL rescetion. states lungs "aren't as strong as they used to be since my surgery", denies issues w/SOB - Neurologic History Hx Cerebrovascular Accident: No Hx Seizures: No Hx Dementia: No Neurologic History Comment: nerve damage from lung surgery, constant pain in chest and back - Endocrine History Hx Diabetes: No Endocrine History Comment: hypothyroid - states treating thyroid b/c of gabapentin use - Renal History Hx Renal Disorders: No - Liver History Hx Hepatic Disorders: No - Neurological & Psychiatric Hx Hx Neurological and Psychiatric Disorders: Yes Neurological / Psychiatric History Comment: situational depression - Cancer History Hx Cancer: Yes Cancer History Comment: LLL Lung CA. prostate CA - Congenital Disorder History Hx Congenital Disorders: No - GI History Hx Gastrointestinal Disorders: No - Other Health History Other Health History: wears glasses for reading. bilateral hearing loss, no hearing aids - Chronic Pain History Chronic Pain: Yes (lower left chest, back) - Surgical History Prior Surgeries: mediastinoscopy w/VATS procedure (LLL removed), 09/2017. right sinus surgery 02/2014. bilateral hernia repair. colonoscopies ANE Review of Systems Review of Systems: - Exercise capacity METS (RN): 4 METS ANE Patient History - Allergies Allergies/Adverse Reactions: CATS Allergy (Uncoded 03/17/18 17:26) SNEEZE, ITCHY EYES wheat grass Allergy (Uncoded 08/15/17 10:34) - Home Medications Home medications: home medication list seen and reviewed Home Medications: Aspirin/Caffeine [Anacin 400-32 mg Tablet] 2 each PO DAILY PRN 03/13/18 [Last Taken 2 Months Ago ~01/31/18] Budesonide [Rhinocort Allergy] 1 spray EACHNARE HS 03/13/18 [Last Taken 2 Days Ago ~03/31/18] Gabapentin [Neurontin] 150 mg PO BID 03/13/18 [Last Taken 04/02/18 04:15] Herbals/Supplements -Info Only 1 ea PO DAILY 03/13/18 [Last Taken 2 Weeks Ago ~ 03/19/18] Levothyroxine [Synthroid 50 mcg (*)] 50 mcg PO DAILY06 03/13/18 [Last Taken 04:15] Melatonin [Melatonin 5 mg] 5 mg PO HS 03/13/18 [Last Taken 3 Weeks Ago ~03/12/18 ] Nortriptyline HCl [Pamelor 25 mg (*)] 25 mg PO HS 03/17/18 [Last Taken 1 Week Ago ~03/26/18] - NPO status NPO Status: no food or drink >8 hours NPO Since - Liquids (Date): 04/02/18 NPO Since - Liquids (Time): 04:15 NPO Since - Solids (Date): 04/01/18 NPO Since - Solids (Time): 19:00 - Anes Hx Anes Hx: no prior problems - Smoking Hx Smoking Status: Former smoker - Family Anes Hx Family Hx Anesthesia Complications: none ANE Labs/Vital Signs - Vital Signs Vital Signs: reviewed preoperatively; see RN documention for details Blood Pressure: 146/95 Heart Rate: 93 Respiratory Rate: 16 O2 Sat (%): 92 Height: 180.34 cm Weight: 90.718 kg ANE Physical Exam - Airway Neck exam: FROM Mallampati Score: Class 2 - Pulmonary Pulmonary: clear to auscultation - Cardiovascular Cardiovascular: regular rate and rhythym - ASA Status ASA Status: III ANE Anesthesia Plan Anesthesia Plan: general endotracheal anesthesia Regional Anesthesia: TAP block
[2018-04-02] MEDS ORDERED: HYDROmorphONE/DILAUDID 2 MG/ML INJ ONE ×2 (07:46→11:23)
[2018-04-02] MEDS ORDERED: DEXAMETHASONE 4 MG/ML VIAL ONE (07:50)
[2018-04-02] MEDS ORDERED: ROCURONIUM 50 MG/5 ML VIAL ONE ×3 (07:53→09:32)
[2018-04-02] MEDS ORDERED: SURGIFLO MATRIX KIT WITH THROMBIN 8 ML TP ONE (08:36)
[2018-04-02] MEDS ORDERED: THROMBIN(HUM PLAS)/FIBRINOG/CA 5 ML VIAL TP ONE (09:20)
[2018-04-02] MEDS ORDERED: ROPIVACAINE HCL 150 MG/30 ML INJ ONE (09:58)
[2018-04-02] MEDS ORDERED: ONDANSETRON 4 MG/2 ML VIAL ONE (10:02)
[2018-04-02] MEDS ORDERED: SUGAMMADEX SODIUM 200 MG/2 ML VIAL IVP ONE (10:05)
[2018-04-02] MEDS ORDERED: NALOXONE HCL 0.4 MG/ML INJ IVP PRN ×2 (10:09→10:33)
[2018-04-02] MEDS ORDERED: LR 500 ML IV PRN (10:09)
[2018-04-02] MEDS ORDERED: ONDANSETRON 4 MG/2 ML VIAL IVP PRN ×2 (10:09→10:29)
[2018-04-02] MEDS ORDERED: ALBUTEROL 3 ML DEYVIAL IH PRN (10:09)
[2018-04-02] MEDS ORDERED: PROMETHAZINE HCL 25 MG/ML INJ IVP PRN (10:09)
[2018-04-02] MEDS ORDERED: MEPERIDINE 25 MG/0.5 ML AMP IVP PRN (10:09)
[2018-04-02] MEDS ORDERED: METOCLOPRAMIDE 10 MG/2 ML VIAL IVP PRN (10:09)
[2018-04-02] MEDS ORDERED: LABETALOL HCL 5 MG/ML 20 ML MDV IVP PRN (10:09)
[2018-04-02] MEDS ORDERED: CAFFEINE PO PRN (10:28)
[2018-04-02] MEDS ORDERED: ASPIRIN PO PRN (10:28)
[2018-04-02] MEDS ORDERED: ACETAMINOPHEN 325 MG TAB PO PRN (10:29)
[2018-04-02] MEDS ORDERED: oxyCODONE IR 5 MG TAB PO PRN (10:29)
[2018-04-02] MEDS ORDERED: ZOLPIDEM TARTRATE 5 MG TAB PO PRN (10:29)
--- NOTE | 2018-04-02 10:35 | POSTOPPROG ---
Post Op Note Date of Operation: 04/02/18 (dictated) Surgeon: Binu Odom Inspector Firearms: Jt Anesthesia: GET(General Endotracheal) Pre-op Diagnosis: prostate cancer Procedure: RA-RRP / PLND Inf/Abcess present in the surg proc area at time of surgery?: No EBL: 50-100 Drains: Klaus Subramanian Specimen(s): sent
--- NOTE | 2018-04-02 11:00 | GOP ---
DATE OF OPERATION: 04/02/2018 SURGEON: Binu Odom MD MANAGER FOREIGN: Riddhi Waters PREOPERATIVE DIAGNOSIS: Prostate cancer. POSTOPERATIVE DIAGNOSIS: Prostate cancer. PROCEDURE PERFORMED: Robotic-assisted radical prostatectomy and pelvic lymph node dissection. FINDINGS: post hernia scarring SPECIMENS: Sent to Pathology. ESTIMATED BLOOD LOSS: 100 mL. DESCRIPTION OF PROCEDURE: The gentleman underwent general anesthesia, and after appropriate time-out and being prepped and draped in normal sterile fashion, a Veress needle was placed in the supraumbilical site, and his abdomen was inflated to 15 mmHg pressure with CO2, and then at that point, I placed a camera port, 12 mm port, and then three 8 mm robot ports, an assistant golf coach port of a 12 mm port, all under vision. They were appropriately placed. There was no intra-abdominal trauma related to the placement of the ports. Then, the robot was docked and used scissors and fenestrated bipolar for the dissection. Brought the colon and sigmoid out of the pelvis and then identified the vas deferens on the right and left sides and carried that peritoneal dissection over the vas deferens where they coursed into the prostate. Those were dissected out and transected, and then the seminal vesicles at the right and left sides were dissected out. Hemostasis was provided with of Hem-o-loks and electrocautery. The rectum was dissected separate from the prostate posteriorly and then went to the anterior part. He had had previous bilateral mesh hernia repairs, and the left dissection was easy down to the ileopubic tract area and Rob ligament, and then on the left side, it was encased in scar tissue and inflammation as he had bled at some point postoperatively from that, and that dissection and inflammation was carried all the way down and it encrusted the endopelvic fascia on the left side. So, the right side, I incised the endopelvic fascia and then mobilized the left side. At that point in time, tried to incise the endopelvic fascia, but because of the scar, it was difficult. I was able to eventually get to the point where I could ligate the deep dorsal vein of the penis with two #0 Vicryl and then focused our attention to the bladder neck. I used the tissue dissector /sealer device to manage the vascularity on the left side simply because the amount of inflammation from his prior surgery was diffuse and I went quite lateral to the prostate because the bulk of his tumor was on the left side. That was carried down to the apical area, and then on the right side, dissected out the lateral bundle and made an attempt to try to preserve the neurovascular bundle on the right side and tried to make certain that there was no violation of the prostatic capsule. We did manage the bladder neck with sharp electrocautery and preserved the circular fibers of the bladder neck and had, prior to the lateral dissection of the prostate, delivered the ampulla, vas deferens, seminal vesicles anterior to the bladder neck. Then at that point, focused attention to the bladder neck, and it was incised sharply on the left side. Again, the inflammation went quite lateral, even lateral to the anterior part of the left pelvic sidewall and the periurethral area. After transection of that grossly, it appeared the apex of the prostate was intact and there was no residual prostatic tissue remaining and then had lowered the intra-abdominal pressure. There was no significant bleeding, and then the anastomosis was performed with a Quill suture to approximate the urethrovesical junction. It was tested and noted to be watertight and bridged with a Goldberg catheter, and then Evicel was placed along the anastomosis and Surgicel was placed into the pelvis because of his prior surgeries and kind of the inflammatory, he had a bit of a subtle ooze so that was the reason for putting that in. Then focused attention to the pelvic lymph nodes and the mesh had actually encased over the iliac vessel, so I was able to, on the left side, dissect out what appeared to be buddy disease and skeletonized the medial aspect of the iliac vein, but the tissue was taken off was lymphatic tissue, as well as some of the mesh. The vein was not violated, could identify the obturator nerve, and it was intact. Hemostasis with the Hem-o-loks, and then did a similar dissection on the right side. Specimens were withdrawn from the abdomen. A JAIRO drain placed through the left- sided 8 mm port and then delivered the prostate through an extended dissection of the supraumbilical port. The linea alba and rectus muscle were approximated with a running 0 Vicryl. Subcutaneous tissue hemostatic. The fascial closure device was used to close the 12 mm port for the assistant golf coach site, and then subcutaneous tissues were hemostatic, and 4-0 Monocryl was used to close the skin edges. COMPLICATIONS: None. DISPOSITION: I will discuss the findings with the , and he will be admitted for postoperative care. /[id number]/MODL MTDD
[2018-04-02] MEDS: fentaNYL 100 MCG/2 ML INJ IVP PRN ×2 (11:08→11:18)
[2018-04-02] MEDS ORDERED: DIAZEPAM 5 MG/ML 1 ML SYR ONE (11:23)
[2018-04-02] MEDS: DIAZEPAM 5 MG/ML 1 ML SYR IVP PRN ×2 (11:26→11:38)
[2018-04-02] MEDS: HYDROmorphONE/DILAUDID 2 MG/ML INJ IVP PRN ×5 (11:30→12:36)
[2018-04-02] MEDS: D5W 1/2 NS 1,000 ML IV SCH (13:34)
[2018-04-02] MEDS: HYDROmorphONE/DILAUDID 6 MG/30 ML PCA IV PRN (13:36)
--- NOTE | 2018-04-02 15:01 | ASMTCMCOM ---
CM Note CM Note Notes: Chart reviewed for discharge planning needs. He is a 67 year old male s/p radical prostatectomy with pelvic lymph node dissection. Needs unclear at this point in time. CM available if needs arise. Plan: TBD Date Signed: 04/02/2018 03:00 PM Electronically Signed By:Claudette Eugene RN
[2018-04-02] MEDS ORDERED: NS 500 ML IV ONE (16:24)
[2018-04-02] MEDS ORDERED: NORTRIPTYLINE HCL 25 MG CAP PO SCH (21:00)
[2018-04-02] MEDS: GABAPENTIN 250 MG/5 ML 30 ML BOTTLE PO SCH (21:08)
[2018-04-02] MEDS: [UNRECOGNIZED DRUG - REMARK] EACHNARE SCH (21:10)
[2018-04-02] MEDS: MELATONIN 3 MG TAB PO SCH (21:10)
[2018-04-02] MEDS: NORTRIPTYLINE HCL 25 MG CAP PO SCH (21:10)
[2018-04-03] MEDS: ONDANSETRON DISINTEGRATING 4 MG TAB PO PRN ×4 (00:32→20:04)
[2018-04-03] MEDS: D5W 1/2 NS 1,000 ML IV SCH ×2 (00:32→10:33)
[2018-04-03] MEDS: HYDROCODONE/APAP 5/325 TAB PO PRN ×4 (00:40→20:08)
[2018-04-03] MEDS: HYDROmorphONE/DILAUDID 6 MG/30 ML PCA IV PRN ×2 (04:54→17:42)
[2018-04-03] MEDS: LEVOTHYROXINE 50 MCG TAB PO SCH (04:58)
[2018-04-03 05:09] LABS: PLATELET COUNT 233 10^3/uL (150-400)
--- NOTE | 2018-04-03 08:16 | SOAPPROG ---
SOAP Progress Note Assessment/Plan: Assessment: Prostate cancer Acute POD # 1 , doing well consider DC if GI tract is functioning Plan: DC JAIRO, assess dc later today 04/03/18 09:10 Subjective: pain , no flatus, inspirometer >2000 Objective: Vital Signs Temp Pulse Resp BP Pulse Ox 36.6 C 81 16 123/80 H 94 04/03/18 07:48 04/03/18 07:48 04/03/18 07:48 04/03/18 07:48 04/03/18 07:48 Laboratory Results 04/03/18 04:35 04/03/18 04:35 04/02/18 04/03/18 04/04/18 05:59 05:59 05:59 Intake Total 3620.4 Output Total 1490 Balance 2130.4 Physical Exam - Physical Exam General Appearance: alert Neck: supple Respiratory: No respiratory distress Cardiac/Chest: regular rate, rhythm Abdomen: distended Back: No CVA tenderness Extremities: No calf tenderness, No Tyrone's sign Neuro/Psych: alert, oriented x 3 ICD10 Worksheet Patient Problems: Problems Problem Status Onset Prostate cancer Acute Non-small cell carcinoma of lung, stage 2 Acute - ICD10 Problem Qualifiers (1) Prostate cancer
[2018-04-03] MEDS ORDERED: SENNOSIDES/DOCUSATE SODIUM TAB PO PRN (09:09)
[2018-04-03] MEDS: GABAPENTIN 250 MG/5 ML 30 ML BOTTLE PO SCH (10:53)
--- NOTE | 2018-04-03 15:21 | ASMTCMCOM ---
CM Note CM Note Notes: Surgery completed today. No CM needs at this time; CM will follow for changes. D/C Plan: Anticipate independent. Date Signed: 04/03/2018 03:20 PM Electronically Signed By:Jennifer Osorio
--- NOTE | 2018-04-03 17:14 | PDMN ---
Medical Necessity Medical necessity: [facility] [place] S960 Prostatectomy, Radical: 67 yo s/p radical prostatectomy w/ lymph node dissection, initially OBS but requires additional MN as pt cont with pain issues, on dilaudid IRON PLASTIC BULLET MAKER. Change to IP status 04/03/18@ 1707 for pain management.
[2018-04-03] MEDS: NORTRIPTYLINE HCL 25 MG CAP PO SCH (20:04)
[2018-04-03] MEDS: MELATONIN 3 MG TAB PO SCH (20:05)
[2018-04-03] MEDS: [UNRECOGNIZED DRUG - REMARK] EACHNARE SCH (20:12)
[2018-04-03] MEDS ORDERED: FAMOTIDINE 20 MG TAB PO PRN (21:15)
[2018-04-03] MEDS ORDERED: FAMOTIDINE 20 MG TAB PO SCH (21:15)
[2018-04-04] MEDS: HYDROCODONE/APAP 5/325 TAB PO PRN (02:40)
[2018-04-04] MEDS: LEVOTHYROXINE 50 MCG TAB PO SCH (05:45)
[2018-04-04] MEDS: D5W 1/2 NS 1,000 ML IV SCH (06:57)
--- NOTE | 2018-04-04 07:28 | SOAPPROG ---
SOAP Progress Note Assessment/Plan: Assessment: Prostate cancer Acute POD # 2 , doing well consider DC Plan: DC later today 04/04/18 07:27 Subjective: better Objective: Vital Signs Temp Pulse Resp BP Pulse Ox 37.0 C 78 14 106/41 L 98 04/04/18 04:15 04/04/18 04:15 04/04/18 04:15 04/04/18 04:15 04/04/18 04:15 Laboratory Results 04/03/18 04:35 04/03/18 04:35 04/03/18 04/04/18 04/05/18 05:59 05:59 05:59 Intake Total 3620.4 1839 Output Total 1490 2180 Balance 2130.4 -341 Physical Exam - Physical Exam General Appearance: alert Respiratory: No respiratory distress Cardiac/Chest: regular rate, rhythm Abdomen: soft Extremities: No calf tenderness, No Tyrone's sign Neuro/Psych: alert, oriented x 3 ICD10 Worksheet Patient Problems: Problems Problem Status Onset Prostate cancer Acute Non-small cell carcinoma of lung, stage 2 Acute - ICD10 Problem Qualifiers (1) Prostate cancer
--- NOTE | 2018-04-04 07:35 | SOAPPROG ---
SOAP Progress Note Assessment/Plan: Assessment: Prostate cancer Acute POD # 2 , doing well consider DC Plan: DC later today 04/04/18 07:35 Subjective: walking and a bit tired and no gas yet feels like movement in progress Objective: Vital Signs Temp Pulse Resp BP Pulse Ox 37.0 C 78 14 106/41 L 98 04/04/18 04:15 04/04/18 04:15 04/04/18 04:15 04/04/18 04:15 04/04/18 04:15 Laboratory Results 04/03/18 04:35 04/03/18 04:35 04/03/18 04/04/18 04/05/18 05:59 05:59 05:59 Intake Total 3620.4 1839 Output Total 1490 2180 Balance 2130.4 -341 Physical Exam - Physical Exam General Appearance: alert Respiratory: No respiratory distress Cardiac/Chest: regular rate, rhythm Abdomen: soft Back: No CVA tenderness Extremities: No calf tenderness, No Tyrone's sign Neuro/Psych: alert, oriented x 3 ICD10 Worksheet Patient Problems: Problems Problem Status Onset Prostate cancer Acute Non-small cell carcinoma of lung, stage 2 Acute - ICD10 Problem Qualifiers (1) Prostate cancer
[2018-04-04 08:11] VITALS: BP 114/67
--- NOTE | 2018-04-04 08:38 | GDS ---
ADMISSION DIAGNOSIS: Prostate cancer. DISCHARGE DIAGNOSIS: Prostate cancer. PROCEDURE DURING THE HOSPITALIZATION: Robotic-assisted radical prostatectomy with pelvic lymph node dissection. HOSPITAL COURSE: This gentleman was an a.m. admission and had the above procedure performed without complication. JAIRO drain pulled on postop day 1. He is discharged home with a Goldberg catheter in place, to have follow up with me in 10 days for cathet er removal. Postop recommendations made. /[id number]/MODL
--- NOTE | 2018-04-04 09:11 | ASMTLACE ---
LACE Length of stay for Answers: 1 day current admission Comorbidities - select Answers: Any tumor (including all that apply lymphoma or leukemia) Score: 3 Date Signed: 04/04/2018 09:11 AM Electronically Signed By:Claudette Eugene RN
== END 2018-04-04 11:24 | disposition home or self-care (01) | DRG 708 ==
LOC: INTOOBSV 05:41 → F1N 05:41 → OBSVTOIN 04-03 17:07
PROVIDERS: ADMIT Specialist; ATTEND Specialist
DX: C61 Malignant neoplasm of prostate (principal); E03.9 Hypothyroidism, unspecified; H91.90 Unspecified hearing loss, unspecified ear; Z85.118 Personal history of other malignant neoplasm of bronchus and lung; Z90.2 Acquired absence of lung [part of]; Z87.891 Personal history of nicotine dependence
CPT/HCPCS: J0690; J1100; J1170; J2250; J2405; J2704; J2795; J3010; J3360

== ENCOUNTER → 2018-04-16 | Outpatient (CLI) | payer OTHER, MEDICARE ==
[~2018-04-16] MED LIST changes: -GADOBUTROL 10 ML VIAL IVP ONE; +IOHEXOL 300 mgI/ML (OMNIPAQUE) 150 ML BTL IV ONE
[2018-04-16 10:19] LABS: PLATELET COUNT 308 10^3/uL (150-400)
== END ==
LOC: FIMAGING 09:27
PROVIDERS: ATTEND Specialist
DX: E87.70 Fluid overload, unspecified (principal); Z98.890 Other specified postprocedural states; Z90.79 Acquired absence of other genital organ(s)
CPT/HCPCS: 74177; Q9967

== ENCOUNTER → 2018-05-26 | Outpatient (CLI) | payer OTHER, MEDICARE ==
[~2018-05-26] MED LIST changes: -IOHEXOL 300 mgI/ML (OMNIPAQUE) 150 ML BTL IV ONE; +IOPAMIDOL (ISOVUE-300) 100 ML BTL ONE
== END ==
LOC: FIMAGING 14:57
PROVIDERS: ATTEND Specialist
DX: R10.2 Pelvic and perineal pain (principal)
CPT/HCPCS: 72193; Q9967